=== PATIENT | male | born 1960 | race Caucasian/White ===

== ENCOUNTER 2019-03-20 16:55 | Emergency (ER) | payer BC ==
--- NOTE | 2019-03-20 17:14 | EDM.PDOC ---
ED HPI GENERAL MEDICAL PROBLEM - General Chief Complaint: Syncope Stated Complaint: [facility] Time Seen by Provider: 03/20/19 17:00 Source of Information: Reports: Patient, EMS History Limitations: Reports: No Limitations - History of Present Illness INITIAL COMMENTS - FREE TEXT/NARRATIVE: 59-year-old male presents to the ED per [facility] and ambulance after a syncopal event occurred at home. And is able to provide most of the history even though there is a small portion that he can't remember. He states the fridge went out in the house. They have a spare when in the garage and they had already moved bridge from the garage into the house. He was carrying the refrigerator door which is quite heavy 60-70 pounds containing an icemaker etc. and missed the last step coming from his into the house. This propelled him forwards and he stuck the dorsal aspect of his left hand on the door frame. In significant skin tears over all for MCP joints dorsal left hand. He recognized this was significantly painful. 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 100 to be started to feel unwell lightheaded, dizzy and broke out in sweat and had to sit down on the toddler's chair. The next thing he remembers waking up on the floor with family members around to calling 911. You were able to speak right away and there was no evidence that he suffered any seizure. He states he feels a little low at between his legs and is not sure how he got wet whether he lost control of his bladder or not. He denies any other injuries. He is amazed that he's been drinking well and Dr. Juarez most of the day and hasn't had a lot to eat or drink otherwise. He has some concerns that he might be diabetic as it runs in his family and requests of blood sugar. His vital signs are all back to normal. Onset: Today Onset Date: 03/20/19 Onset Time: 16:40 Duration: Minutes: Location: Reports: Upper Extremity, Left (Initial injuries was to the dorsal aspect of the left hand worries skinned up all of the knuckles over the MCP joints. Suspect from blunt trauma where he struck a door frame entering his home.) Quality: Reports: Other (Feels back to normal at this time.) Severity: Moderate Improves with: Reports: Other Worsens with: Reports: None (Was completely back to normal by the time he reached the ED from [place] where he resides.) Context: Reports: Trauma (Got tripped up going into his palmar pulling onto a large refrigerator door causing him to fall and scraped his left hand against the door frame with resultant multiple skin tears over the knuckles or MCP joints of all 4 fingers.). Denies: Activity, Exercise, Lifting, Sick Contact Associated Symptoms: Reports: Syncope, Other (Shortly thereafter within a minute or 2 suffered a syncopal event likely he had sat down on a toddler chair was only 18 inches off the ground when he went to the floor. He was unresponsive for about 45 seconds) Treatments COURTESY VAN DRIVER: Reports: Other (see below) - Related Data Allergies Allergy/AdvReac Type Severity Reaction Status Date / Time No Known Allergies Allergy Verified 03/20/19 16:56 Past Medical History Cardiovascular History: Reports: High Cholesterol, Hypertension Social & Family History - Living Situation & Occupation Living situation: Reports: Single, with Significant Other Occupation: Employed ED ROS GENERAL - Review of Systems Review Of Systems: See Below Constitutional: Denies: Fever, Chills, Malaise, Weakness, Fatigue, Decreased Appetite HEENT: Reports: Glasses Respiratory: Reports: Shortness of Breath, Wheezing, Cough (Continues to smoke.) . Denies: Pleuritic Chest Pain Cardiovascular: Reports: Blood Pressure Problem (Is on antihypertensive medication), Dyspnea on Exertion, Lightheadedness. Denies: Chest Pain, Claudication, Edema (Today after injuring his left hand.), Orthopnea Endocrine: Reports: Fatigue (Sometimes) GI/Abdominal: Reports: No Symptoms : Reports: Frequency, Other (Nocturia 2) Musculoskeletal: Reports: Back Pain, Joint Pain (Knees hips neck and shoulders at times.) Skin: Reports: Other (Injury to the dorsal aspect of his left hand today.) Neurological: Reports: No Symptoms Psychiatric: Reports: No Symptoms - Physical Exam Exam: See Below Exam Limited By: No Limitations General Appearance: Alert, WD/WN, No Apparent Distress, Anxious (Mildly anxious about what is happening to him. Typically the fact that he is right between his legs suggesting that he lost control of his bladder at least partially.) Eye Exam: Bilateral Eye: Nystagmus (Nystagmus on lateral gaze bilaterally.) Throat/Mouth: Normal Inspection, Normal Lips, Normal Oropharynx, Other (Breath smells strongly of alcohol.) Head Exam: Atraumatic, Normocephalic, Other Neck: Normal Inspection (No signs of any head or facial trauma.), Supple, Non- Tender, Full Range of Motion. No: Lymphadenopathy (L), Lymphadenopathy (R) Respiratory/Chest: No Respiratory Distress, No Accessory Muscle Use, Chest Non- Tender, Decreased Breath Sounds, Wheezing (Mildly decreased air entry to both posterior lung whiting with scattered wheezes on expiration). No: Lungs Clear, Normal Breath Sounds, Respiratory Distress, Rhonchi Cardiovascular: Normal Peripheral Pulses, Regular Rate, Rhythm, No Edema, No Gallop, No Murmur, No Rub GI/Abdominal: Normal Bowel Sounds, Soft, Non-Tender, No Organomegaly, No Abnormal Bruit, No Mass, Pelvis Stable Neuro Exam (Abbreviated): Alert, Oriented, CN II-XII Intact, Normal Cognition, No Motor/Sensory Deficits Extremities: Other (Inspection of his dorsal left hand shows that he has skinned all of the knuckles from second to the fingers over the MCP joints. He' s lost a good 1.2 cm of skin from all the joints dorsally on his left hand.) Psychiatric: Normal Affect ( This will require some debridement and topical antibiotic and dressings.), Normal Mood Skin Exam: Warm, Dry, Intact, Normal Color, No Rash EKG INTERPRETATION EKG Date: 03/20/19 Time: 17:20 Rhythm: NSR Rate (Beats/Min): 65 Willard: Normal P-Wave: Enlarged (Lately enlarged suggesting left atrial hypertrophy) QRS: Other (Initial poor R-wave progression.) QT: Normal Comparison: NA - No Prior EKG EKG Interpretation Comments: Borderline ECG Course - Vital Signs Last Recorded V/S: Last Vital Signs Temp 36.7 C 03/20/19 16:57 Pulse 69 03/20/19 16:57 Resp 16 03/20/19 16:57 BP 131/95 H 03/20/19 16:57 Pulse Ox 96 03/20/19 16:57 - Orders/Labs/Meds Orders: Active Orders 24 hr Category Date Time Status Blood Glucose Check, Bedside [RC] ONETIME Care 03/20/19 17:13 Active EKG Documentation Completion [RC] STAT Care 03/20/19 17:13 Active Orthostatic Vital Signs [RC] ASDIRECTED Care 03/20/19 17:45 Active Labs: Laboratory Tests 03/20/19 Range/Units 17:22 POC Glucose 100 (70-105) mg/dL - Radiology Interpretation Free Text/Narrative:: 59-year-old male presents to the ED after suffering a vasovagal syncopal episode at home this afternoon. Patient remembers most of the incident today. He states he's been drinking rum and Dr. Juarez most of the day and not taking adequate fluids or nutrition. The fridge in the house went out and they replaced it with a backup fridge from the garage. He was carrying in the door which contains an icemaker and weighs about 70lbs.He missed the last step while coming into the house from the garage and tripped. His resulted in his left hand coming in contact with the door frame and resultant skin tears of all of the knuckles of his dorsal left hand. He carried the first or into the house and then settled down. On for a bit because he was having quite a bit of pain in his left hand. Within a minute or 2 he started to feel very unwell lightheaded, dizzy, nausea, but quit in a cold sweat. 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 His girlfriend estimates that he was unresponsive for about 45 seconds. When he came around he was able to answer all questions appropriately. He denies any other injuries. Empirically did not hit his head or hurt his neck. Plan blood sugar will be done. ECG and orthostatic BPs. - Re-Assessments/Exams Free Text/Narrative Re-Assessment/Exam: 03/20/19 18:00: Blood sugar was 100. ECG shows probably mild left eye due to hypertrophy pattern and no signs of ischemia. Regular rhythm. He therefore was discharged from the department. Is to refrain from any further alcohol use today. Gatorade or Powerade to provide rehydration. His wounds on his dorsal hand were cleansed and antibiotic salve placed. He is to do this daily until they are healed which will be a good 10 days. Departure - Departure Time of Disposition: 17:35 Disposition: Home, Self-Care 01 Condition: Fair Clinical Impression: Vasovagal syncope Abrasion of multiple sites of hand and finger Qualifiers: Encounter type: initial encounter Laterality: left Qualified Code(s): S60.512A - Abrasion of left hand, initial encounter; S60.419A - Abrasion of unspecified finger, initial encounter - Discharge Information *PRESCRIPTION DRUG MONITORING PROGRAM REVIEWED*: Not Applicable *COPY OF PRESCRIPTION DRUG MONITORING REPORT IN PATIENT [facility]: Not Applicable Instructions: Syncope, Akth-[id number] Forms: ED Department Discharge Additional Instructions: Evaluation the emergency room today in regards to injuries to the dorsal aspect of your left hand that occurred while you were carrying a refrigerator door into your home. You missed the last step going upwards which trip to up propelling you for words. The dorsal aspect of your left hand came in contact with the door frame or wall and resulted in significant skin tears to the dorsal aspect of your knuckles or MCP joints. This injury in turn caused a pain response to occur. Within the next few minutes he started to feel lightheaded dizzy and appreciated developing a cold sweat. He felt faint and therefore sat down in a small chair made for 5-year-old. The next thing you know you're on the floor looking upwards and hearing your called 911. It sounds like you are unresponsive for less than 45 seconds. You were able to respond to all questions asked of you by your and the paramedics. The only injuries identified on examination were to the dorsal aspect of your left hand with deep abrasions with superficial skin loss over the knuckles of your fingers 2 to 5. As you indicated you haven't had a lot to eat or drink today. Therefore you're somewhat volume depleted due to the alcohol on board as it makes you go to the bathroom more frequently. Blood sugar in the ED was 100 meaning you do not have diabetes. ECG also was normal. Therefore you suffered a fainting spell secondary to vasovagal syncope. This is a full 10 reflex in response to pain which slows her heart rate down which that of course dropped her blood pressure making her dizzy lightheaded and if you don't lie down fast enough to get away from the effect of gravity you'll pass out. Therefore you suffered a fainting spell secondary to significant pain response from injury to dorsal left hand. No other injuries are identified on examination. Treatment is to daily cleanse the wounds to the dorsal aspect of your left hand on a daily basis. Showering is okay. Then apply topical antibiotic such as bacitracin or Polysporin to all the wounds and cover with a bandage until they are healed. Then secondary infection from occurring. As you indicated your tetanus toxoid is up-to-date. Suggest strongly that you have a regular meal and drink 20-40 ounces of Gatorade tonight to provide rehydration. Follow-up is required if you develop any signs or symptoms of infection in your left hand. This would mean increased redness, increased pain increased swelling, and/or obvious pus. - My Orders Last 24 Hours: My Active Orders 03/20/19 17:13 Blood Glucose Check, Bedside [RC] ONETIME EKG Documentation Completion [RC] STAT 03/20/19 17:45 Orthostatic Vital Signs [RC] ASDIRECTED - Assessment/Plan Last 24 Hours: My Active Orders 03/20/19 17:13 Blood Glucose Check, Bedside [RC] ONETIME EKG Documentation Completion [RC] STAT 03/20/19 17:45 Orthostatic Vital Signs [RC] ASDIRECTED
== END 2019-03-20 17:47 | disposition home or self-care (01) ==
LOC: JD.ED 16:55
DX: S60.512A Abrasion of left hand, initial encounter (principal); R55 Syncope and collapse; I10 Essential (primary) hypertension; F17.200 Nicotine dependence, unspecified, uncomplicated; W22.09XA Striking against other stationary object, initial encounter; Y93.89 Activity, other specified; Y92.009 Unspecified place in unspecified non-institutional (private) residence as the place of occurrence of the external cause
CPT/HCPCS: 82962; 93005; 93010; 99283; 99284-25

== ENCOUNTER 2024-06-27 11:27 | Emergency (ER) | payer BC ==
[2024-06-27 12:48] LABS: BASOPHILS ABSOLUTE AUTO 0.1 K/mm3 (0.0-0.2); BASOPHILS PERCENT AUTO 0.4 % (0.0-1.0); EOSINOPHILS PERCENT AUTO 0.3 % (0.0-6.0); HEMATOCRIT 46.5 % (42.0-52.0); HEMOGLOBIN 16.5 gm/dl (14.0-18.0); IMMATURE GRAN ABSOLUTE AUTO 0.03 K/mm3 (0.00-0.05); IMMATURE GRAN PERCENT AUTO 0.3 % (0.0-0.4); LYMPHOCYTES ABSOLUTE AUTO 2.2 K/mm3 (1.0-4.8); LYMPHOCYTES PERCENT AUTO 19.6 % (24.0-44.0); MEAN CORPUSCULAR HEMOGLOBIN 34.1 pg (28.0-32.0); MEAN CORPUSCULAR HGB CONC 35.5 g/dl (32.0-36.0); MEAN CORPUSCULAR VOLUME 96.1 fl (83.0-99.0); MEAN PLATELET VOLUME 9.3 fl (9.4-12.4); MONOCYTES ABSOLUTE AUTO 0.6 K/mm3 (0.0-0.8); MONOCYTES PERCENT AUTO 5.3 % (0.0-8.0); NEUTROPHILS ABSOLUTE AUTO 8.5 K/mm3 (1.8-7.7); NEUTROPHILS PERCENT AUTO 74.1 % (41.0-71.0); PLATELET COUNT,PLT 209 K/mm3 (150-400); RED BLOOD CELL COUNT 4.84 M/mm3 (4.52-5.90); WHITE BLOOD CELL COUNT,WBC 11.41 K/mm3 (3.9-11.3)
[2024-06-27 13:10] LABS: A/G RATIO 1.3 (1-2); ALBUMIN 4.1 g/dl (3.4-5.0); ANION GAP 16.7 (5-15); BILIRUBIN TOTAL 0.8 mg/dL (0.2-1.0); CALCIUM 8.8 mg/dL (8.5-10.1); EST CRCL DRUG DOSING (CG) 76.04 mL/min; ETHANOL BLOOD MEDICAL 0.1 gm% (0.00); POTASSIUM,K 3.7 mEq/L (3.5-5.1); PROTEIN TOTAL,TP 7.3 g/dl (6.4-8.2)
== END 2024-06-27 13:35 | disposition home or self-care (01) ==
LOC: JD.ED 11:27
DX: M54.2 Cervicalgia (principal); R51.9 Headache, unspecified; I10 Essential (primary) hypertension; E78.00 Pure hypercholesterolemia, unspecified; Z79.899 Other long term (current) drug therapy; F17.210 Nicotine dependence, cigarettes, uncomplicated; Z79.82 Long term (current) use of aspirin
CPT/HCPCS: 36415; 70450; 70450-26; 80053; 80307; 83735; 85025; 99284